=== PATIENT | male | born 1980 | race Hispanic/Latino ===

== ENCOUNTER 2017-03-26 21:22 | Inpatient (IN) | payer MEDICARE ==
[~2017-03-26] VITALS: Ht 160 cm; Wt 67.7 kg
[2017-03-26 21:53] LABS: BASOPHILS % (AUTO) 0.7 % (0.0-5.0); EOSINOPHILS % (AUTO) 0.1 % (0.0-8.0); HEMATOCRIT 46.1 % (42-54); LYMPHOCYTES % (AUTO) 20.3 % (21.0-51.0); MEAN CORPUSCULAR HEMOGLOBIN 31.9 pg (27.0-33.0); MEAN CORPUSCULAR HGB CONC 33.4 g/dL (32.0-36.0); MEAN CORPUSCULAR VOLUME 95.7 fL (79-99); MONOCYTES % (AUTO) 9.9 % (3.0-13.0); PLATELET COUNT (AUTO) 311 K/uL (130-400); RED BLOOD CELL COUNT(AUTO) 4.81 MIL/uL (4.50-6.20); RED CELL DISTRIBUTION WIDTH 12.9 % (11.0-15.5); WHITE BLOOD COUNT (AUTO) 8.6 K/uL (4.8-10.8)
[2017-03-26 22:18] LABS: BILIRUBIN,TOTAL 0.9 mg/dL (0.2-1.0); CREATININE 1.8 mg/dL (0.5-1.5); POTASSIUM 4.1 mmol/L (3.5-5.1)
[2017-03-26 22:22] LABS: APPEARANCE,URINE Clear (CLEAR); BILIRUBIN,URINE Negative (NEGATIVE); COLOR,URINE Yellow (YELLOW); GLUCOSE, URINE (UA) >=1000 mg/dL (NEGATIVE); KETONES,URINE Negative (NEGATIVE); LEUKOCYTE ESTERASE ,URINE Negative (NEGATIVE); NITRATE,URINE Negative (NEGATIVE); OCCULT BLOOD,URINE Negative (NEGATIVE); PROTEIN,URINE Negative (NEGATIVE); UROBILINOGEN,URINE 0.2 mg/dL (0.2-1.0)
[2017-03-26 22:30] LABS: AMPHET/METH SCREEN,URINE NEGATIVE (NEGATIVE); BARBITURATE SCREEN, URINE NEGATIVE (NEGATIVE); BENZODIAZEPINES SCREEN,URINE NEGATIVE (NEGATIVE); CANNABINOID SCREEN,URINE NEGATIVE (NEGATIVE); COCAINE SCREEN,URINE NEGATIVE (NEGATIVE); OPIATE SCREEN,URINE NEGATIVE (NEGATIVE); PHENCYCLIDINE SCREEN,URINE NEGATIVE (NEGATIVE)
[2017-03-26] MEDS ORDERED: SODIUM CHLORIDE 0.9% 1000ML 1,000 ML IV ONE (22:42)
[2017-03-26 22:45] LABS: BACTERIA,URINE None Seen /HPF (None Seen); MUCUS,URINE Few LPF (None Seen); RBC,URINE 0-1 /HPF (0-1); SQUAMOUS EPITHELIAL CELL,UR Moderate /LPF (0-2); WBC,URINE 0-1 /HPF (0-1)
[2017-03-26 23:03] LABS: ABG BASE EXCESS -4.1 mmol/L (-2.0-3.0); ABG HCO3 20.8 mmol/L (21.0-28.0); ABG OXYGEN SATURATION 96.9 % (95.0-99.0); ABG PCO2 38 mmHg (35-48)
[2017-03-26] MEDS ORDERED: SODIUM CHLORIDE 0.9% 100 ML IV ONE ×2 (23:07→23:09)
[2017-03-26] MEDS ORDERED: INSULIN HUMULIN R 100 UNIT/ML 3ML ONE (23:09)
[2017-03-27] VITALS (21 sets, daily range): BP systolic 113–161; BP diastolic 63–105
[2017-03-27] MEDS ORDERED: ACETAMINOPHEN 325 MG TAB PO PRN (02:45)
[2017-03-27] MEDS ORDERED: ONDANSETRON HCL 4 MG/2 ML VIAL IV PRN (02:45)
[2017-03-27] MEDS ORDERED: INSULIN REGULAR, HUMAN 3ML 100 UNIT in SODIUM CHLORIDE 0.9% 99 ML IV PRN ×2 (03:00)
[2017-03-27] MEDS ORDERED: BUPR150T8 PO (04:21)
[2017-03-27] MEDS ORDERED: HYDR25TA PO (04:22)
[2017-03-27] MEDS ORDERED: HYDR-3421 PO (04:23)
[2017-03-27] MEDS ORDERED: DOXE100C4 PO (04:24)
[2017-03-27] MEDS ORDERED: ATOR20TA PO (04:25)
[2017-03-27] MEDS ORDERED: PALI273S IM (04:31)
[2017-03-27 05:53] LABS: BASOPHILS % (AUTO) 0.4 % (0.0-5.0); EOSINOPHILS % (AUTO) 0.1 % (0.0-8.0); HEMATOCRIT 46.9 % (42-54); LYMPHOCYTES % (AUTO) 20.7 % (21.0-51.0); MEAN CORPUSCULAR HEMOGLOBIN 31.5 pg (27.0-33.0); MEAN CORPUSCULAR HGB CONC 36.2 g/dL (32.0-36.0); MEAN CORPUSCULAR VOLUME 87.1 fL (79-99); MONOCYTES % (AUTO) 7.2 % (3.0-13.0); NEUTROPHILS % (AUTO) 71.6 % (40.0-77.0); PLATELET COUNT (AUTO) 361 K/uL (130-400); RED BLOOD CELL COUNT(AUTO) 5.38 MIL/uL (4.50-6.20); RED CELL DISTRIBUTION WIDTH 13.3 % (11.0-15.5); WHITE BLOOD COUNT (AUTO) 15.1 K/uL (4.8-10.8)
[2017-03-27 06:01] LABS: CREATININE 1.1 mg/dL (0.5-1.5); POTASSIUM 3.2 mmol/L (3.5-5.1)
[2017-03-27] MEDS ORDERED: SODIUM CHLORIDE 0.9% 1000ML 1,000 ML IV ONE (06:24)
[2017-03-27] MEDS: SODIUM CHLORIDE 0.9% 1000ML 1,000 ML IV SCH ×4 (09:14→19:42)
[2017-03-27] MEDS: FAMOTIDINE/PF 20 MG/2 ML VIAL IV SCH ×2 (09:51→21:07)
[2017-03-27 11:23] LABS: HEMOGLOBIN A1C 8.4 % (4.0-6.0)
[2017-03-27] MEDS: INSULIN DETEMIR 10ML 100 UNIT/ML 10ML SQ SCH (13:45)
[2017-03-27] MEDS ORDERED: HYDRALAZINE HCL 20 MG/ML VIAL IV PRN (13:45)
[2017-03-27] MEDS: HYDROXYZINE HCL 25 MG TABLET PO SCH (17:29)
[2017-03-27] MEDS ORDERED: DEXTROSE 50%-WATER 50 ML DISP.SYRIN IV PRN (20:00)
[2017-03-27] MEDS ORDERED: GLUCAGON 1MG KIT 1 MG ML IM PRN (20:00)
[2017-03-27] MEDS: ATORVASTATIN CALCIUM 10 MG TABLET PO SCH (21:07)
[2017-03-27] MEDS: DOXEPIN HCL 25 MG CAP PO SCH (22:00)
[2017-03-28] VITALS (13 sets, daily range): BP systolic 90–147; BP diastolic 50–98
[2017-03-28] MEDS: SODIUM CHLORIDE 0.9% 1000ML 1,000 ML IV SCH ×3 (02:28→18:53)
[2017-03-28] MEDS: INSULIN HUMULIN R 100 UNIT/ML 3ML SQ SCH ×4 (06:16→20:57)
[2017-03-28] MEDS: INSULIN DETEMIR 10ML 100 UNIT/ML 10ML SQ SCH (06:21)
[2017-03-28] MEDS: HYDROXYZINE HCL 25 MG TABLET PO SCH ×3 (06:38→17:10)
[2017-03-28] MEDS ORDERED: INSULIN GLARGINE 100 UNITS/ML 10 ML VIAL SQ SCH (07:30)
[2017-03-28 08:11] LABS: HEMATOCRIT 38.5 % (42-54); MEAN CORPUSCULAR HEMOGLOBIN 31.8 pg (27.0-33.0); MEAN CORPUSCULAR HGB CONC 35.7 g/dL (32.0-36.0); MEAN CORPUSCULAR VOLUME 89.2 fL (79-99); PLATELET COUNT (AUTO) 254 K/uL (130-400); RED BLOOD CELL COUNT(AUTO) 4.32 MIL/uL (4.50-6.20); RED CELL DISTRIBUTION WIDTH 13.3 % (11.0-15.5); WHITE BLOOD COUNT (AUTO) 10.9 K/uL (4.8-10.8)
[2017-03-28 08:31] LABS: CREATININE 0.9 mg/dL (0.5-1.5); POTASSIUM 3.6 mmol/L (3.5-5.1)
[2017-03-28] MEDS: FAMOTIDINE/PF 20 MG/2 ML VIAL IV SCH ×2 (09:29→20:53)
[2017-03-28] MEDS: BUPROPION HCL 150 MG TABLET.SA PO SCH (09:29)
[2017-03-28] MEDS: METFORMIN HCL 500 MG TABLET PO SCH (17:10)
[2017-03-28] MEDS: DOXEPIN HCL 25 MG CAP PO SCH (20:54)
[2017-03-28] MEDS: ATORVASTATIN CALCIUM 10 MG TABLET PO SCH (20:54)
[2017-03-28] MEDS: INSULIN GLARGINE 100 UNITS/ML 10 ML VIAL SQ SCH (20:56)
[2017-03-29] MEDS: SODIUM CHLORIDE 0.9% 1000ML 1,000 ML IV SCH ×2 (01:23→07:52)
[2017-03-29 04:00] VITALS: BP 111/62
[2017-03-29] MEDS: HYDROXYZINE HCL 25 MG TABLET PO SCH ×2 (06:33→11:30)
[2017-03-29] MEDS: INSULIN HUMULIN R 100 UNIT/ML 3ML SQ SCH ×2 (06:34→12:12)
[2017-03-29] MEDS: METFORMIN HCL 500 MG TABLET PO SCH (07:47)
[2017-03-29] MEDS: BUPROPION HCL 150 MG TABLET.SA PO SCH (07:48)
[2017-03-29] MEDS: INSULIN GLARGINE 100 UNITS/ML 10 ML VIAL SQ SCH (07:50)
[2017-03-29 08:00] VITALS: BP 124/89
[2017-03-29] MEDS ORDERED: FAMOTIDINE 20MG TAB 20 MG TAB PO SCH (09:00)
[2017-03-29] MEDS ORDERED: METF500T6 PO (09:16)
[2017-03-29] MEDS ORDERED: INSLAN SQ (09:16)
[2017-03-29] MEDS ORDERED: INSULIN GLARGINE 100 UNITS/ML 10 ML VIAL SQ SCH (21:00)
== END 2017-03-29 12:14 | disposition home or self-care (01) | DRG 683 ==
LOC: EDH 21:22 → EDHIP 03-27 02:29 → EEVIPCON 03-27 02:29 → 2BH 03-27 03:41
PROVIDERS: ADMIT Family Medicine; ATTEND Family Medicine
DX: N17.9 Acute kidney failure, unspecified (principal); E87.1 Hypo-osmolality and hyponatremia; R73.9 Hyperglycemia, unspecified; E78.5 Hyperlipidemia, unspecified; E86.0 Dehydration; F20.9 Schizophrenia, unspecified; F31.9 Bipolar disorder, unspecified; I10 Essential (primary) hypertension; Z86.73 Personal history of transient ischemic attack (TIA), and cerebral infarction without residual deficits
CPT/HCPCS: 36415; 36600; 70450; 80048; 80053; 80305; 81001; 82009; 82803; 82947; 82948; 83036; 85025; 85027; 99291; G0480; J1815; J3490; J7030

== ENCOUNTER 2020-10-17 22:17 | Emergency (ER) | payer MEDICARE, OTHER ==
[~2020-10-17] VITALS: Ht 160 cm; Wt 81.2 kg
[~2020-10-17 22:17] MED LIST: ATOR20TA PO; BUPR150T8 PO; DOXE100C4 PO; HYDR-3421 PO; HYDR25TA PO; INSLAN SQ; METF-444 PO; PALI273S IM
[2020-10-18 00:25] VITALS: BP 138/78
== END 2020-10-18 00:23 | disposition home or self-care (01) ==
LOC: EDH 22:17
DX: E11.649 Type 2 diabetes mellitus with hypoglycemia without coma (principal); Z91.14 Patient's other noncompliance with medication regimen; E78.00 Pure hypercholesterolemia, unspecified; F31.9 Bipolar disorder, unspecified; F41.9 Anxiety disorder, unspecified; I10 Essential (primary) hypertension; Z79.4 Long term (current) use of insulin; Z79.899 Other long term (current) drug therapy
CPT/HCPCS: 82948; 99282